=== PATIENT | female | born 1950 | race Caucasian/White ===

== ENCOUNTER 2022-05-20 20:11 | Emergency (ER) | payer OTHER, BC ==
[~2022-05-20] VITALS: Ht 162.6 cm; Wt 65.8 kg
[2022-05-20 20:24] VITALS: BP_SYST 180
[2022-05-20] MEDS ORDERED: TRAM50TA2 PO (22:09)
[2022-05-20 22:33] VITALS: BP_SYST 180
== END 2022-05-20 22:33 | disposition home or self-care (01) ==
LOC: SED 20:11
DX: S63.501A Unspecified sprain of right wrist, initial encounter (principal); E78.5 Hyperlipidemia, unspecified; I10 Essential (primary) hypertension; Z88.0 Allergy status to penicillin; Z88.2 Allergy status to sulfonamides; Z79.899 Other long term (current) drug therapy; V49.40XA Driver injured in collision with unspecified motor vehicles in traffic accident, initial encounter; Y93.89 Activity, other specified; Y92.89 Other specified places as the place of occurrence of the external cause; Y99.8 Other external cause status
CPT/HCPCS: 99283